=== PATIENT | male | born 1955 | race Caucasian/White ===

== ENCOUNTER 2023-05-22 16:01 | Emergency (ER) | payer MEDICARE, OTHER, SELFPAY ==
--- NOTE | ~2023-05-22 | XR_ITS ---
EXAM: XR elbow LT min 3V, XR wrist LT 2V DATE: 05/22/2023 17:05 HISTORY: fall, pain . COMPARISON: None available. FINDINGS: Decreased mineralization. Oblique lucency through the lateral aspect of the distal humerus which extends to the elbow joint line. Short ulna. Short third through fifth metacarpals. Bowing of the distal radius. Degenerative change in the elbow joint. Distal ulnar and proximal humeral exostose s. No erosion or periosteal change. Soft tissues within normal limits. IMPRESSION: Oblique, intra-articular fracture of the distal left humerus. No acute osseous finding in the left wrist. 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 Reviewed, dictated and finalized at location [facility]. IMPRESSION: Oblique, intra-articular fracture of the distal left humerus. No acute osseous finding in the left wrist. Chronic findings including multiple exostoses that may represent hereditary mul tiple exostoses, Madelung deformity, and short metacarpals.
[2023-05-22 16:02] VITALS: BP 166/76; PULSE 98; RESP 18; TEMP 36.2; O2SAT 97
[2023-05-22] MEDS: NAPROXEN 500 MG TABLET PO (16:47)
--- NOTE | 2023-05-22 16:50 | ED.FALL ---
HPI - Fall General Chief Complaint: Fall Stated Complaint: fall Time Seen by Provider: 05/22/23 16:12 History of Present Illness HPI Narrative: 68-year-old male presenting with left arm pain. States that he tripped and he fell on a sidewalk onto his left arm. Has severe pain in his left elbow. 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 States that his range of motion is slightly decreased due to pain. He denies any shoulder, wrist, hand pain. States that he took some Tylenol before arrival. Did not strike his head or lose consciousness. Denies neck or back pain. Related Data Allergies Allergy/AdvReac Type Severity Reaction Status Date / Time codeine AdvReac Nausea and Verified 05/22/23 16:11 Vomiting Review of Systems Review of Systems: All systems reviewed & are unremarkable except as noted in HPI and below Exam Narrative: GENERAL: Well-appearing, well-nourished, and in no acute distress. HEAD: Normocephalic, atraumatic. EYES: PERRLA and EOMI. ENT: grossly unremarkable NECK: Supple. CHEST: No respiratory distress. HEART: Regular rate and rhythm EXTREMITIES: left elbow diffusely tender, able to flex normally, unable to fully extend 2/2 pain, radial pulse 2+ SKIN: Warm, dry, superficial abrasion L elbow NEURO: Alert and oriented x3. PSYCH: Normal mood and affect. Course Vital Signs Vital signs: Vital Signs Temperature 97.2 F L 05/22/23 16:02 Pulse Rate 98 05/22/23 16:02 Respiratory Rate 18 05/22/23 16:02 Blood Pressure 166/76 H 05/22/23 16:02 Pulse Oximetry 97 05/22/23 16:02 Oxygen Delivery Room Air 05/22/23 16:02 Temperature 97.6 F 05/22/23 20:26 Pulse Rate 67 05/22/23 20:26 Respiratory Rate 15 05/22/23 20:26 Blood Pressure 154/79 H 05/22/23 20:26 Pulse Oximetry 99 05/22/23 20:26 Oxygen Delivery Room Air 05/22/23 16:02 MDM - Fall MDM Narrative Medical decision making narrative: 68-year-old male presenting with left elbow pain. Vitals stable. Exam remarkable for the above. X-ray with oblique intra-articular distal humerus fracture on the left. No wrist fractures. Patient placed in a posterior splint and sling. Neurovascularly intact following the splint. Spoke with orthopedics who agrees with outpatient follow-up. Will send in for [place] for severe pain, advised Tylenol and Aleve as well. Appropriate return precautions given and discussed appropriate supportive care. Patient is agreeable this plan. Discharged in stable condition. Differential Diagnosis Differential diagnosis: Likely fracture of wrist and other ( Humerus fracture) Medical Records Attestation: I reviewed the patient's medical records. Imaging Data Radiologist's impression: ITS Impressions Elbow X-Ray 05/22/23 17:06 IMPRESSION: Oblique, intra-articular fracture of the distal left humerus. No acute osseous finding in the left wrist. 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 Wrist X-Ray 05/22/23 17:06 IMPRESSION: Oblique, intra-articular fracture of the distal left humerus. No acute osseous finding in the left wrist. 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 Critical Care Time Critical Care Time Critical Care Time: No Discharge Plan Discharge Clinical Impression: Fracture of distal end of left humerus Patient Disposition: Home, Self-Care Condition: Stable Instructions: Antibiotic Form, Elbow Fracture (DC) Additional Instructions: You broke the end of your left humerus that makes a part of your left elbow. You have been placed in a splint and sling. Please use Tylenol and Aleve for pain control. You may use the [place] for severe breakthrough pain. Please follow-up close
[2023-05-22 18:13] VITALS: BP 161/97; PULSE 84; RESP 15; O2SAT 100
[2023-05-22] MEDS: HYDROcodone/acetaminophen (*CRX) 5-325 MG TABLET 1 TAB PO (18:45)
--- NOTE | 2023-05-22 19:09 | PC.NURSE ---
Report given to Tony PALACIOS, all questions answered
[2023-05-22 20:26] VITALS: BP 154/79; PULSE 67; RESP 15; TEMP 36.4; O2SAT 99
== END 2023-05-22 20:27 | disposition home or self-care (01) ==
PROVIDERS: Emergency Provider Emergency Medicine
DX: S42.492A Other displaced fracture of lower end of left humerus, initial encounter for closed fracture (principal); W01.0XXA Fall on same level from slipping, tripping and stumbling without subsequent striking against object, initial encounter
CPT/HCPCS: 29105; 73080; 73100; 99284; A4565; A9270